=== PATIENT | female | born 1980 | race Native Hawaiian/Other Pacific Islander ===

== ENCOUNTER 2018-03-22 12:42 | Emergency (ER) | payer OTHER ==
[~2018-03-22] VITALS: Ht 152.4 cm; Wt 85.3 kg
[2018-03-22 12:47] VITALS: TEMP 98.4
[2018-03-22 13:35] LABS: PLATELET COUNT 190 K/uL (152-353)
[2018-03-22 14:10] VITALS: BP 126/74
== END 2018-03-22 14:10 | disposition home or self-care (01) ==
LOC: ED 12:42
DX: N39.0 Urinary tract infection, site not specified (principal)
CPT/HCPCS: 36415; 81000; 85027; 96372; 99283; J0696

== ENCOUNTER 2018-12-29 17:43 | Emergency (ER) | payer OTHER ==
[~2018-12-29] VITALS: Ht 152.4 cm; Wt 85.3 kg
[2018-12-29 18:56] LABS: PLATELET COUNT 213 K/uL (152-353)
[2018-12-29 19:10] LABS: POTASSIUM 4.2 mmol/L (3.6-5.2)
[2018-12-29 19:50] VITALS: BP 122/75; TEMP 97.8
== END 2018-12-29 19:50 | disposition home or self-care (01) ==
LOC: ED 17:43
PROVIDERS: Emergency Medicine
DX: M54.5 Low back pain (principal); R10.32 Left lower quadrant pain
CPT/HCPCS: 36415; 80053; 81000; 81025; 85027; 99283

== ENCOUNTER 2019-05-07 16:21 | Emergency (ER) | payer OTHER ==
[~2019-05-07] VITALS: Ht 152.4 cm; Wt 73.6 kg
[2019-05-07 17:52] VITALS: BP 123/81; TEMP 98.1
== END 2019-05-07 18:00 | disposition home or self-care (01) ==
LOC: ED 16:21
DX: N93.8 Other specified abnormal uterine and vaginal bleeding (principal)
CPT/HCPCS: 81000; 81025; 99284

== ENCOUNTER 2021-04-23 13:52 | Emergency (ER) | payer OTHER ==
[~2021-04-23] VITALS: Ht 149.9 cm; Wt 73.5 kg
[2021-04-23 15:15] VITALS: BP 128/80; TEMP 98.2
== END 2021-04-23 15:21 | disposition home or self-care (01) ==
LOC: ED 13:52
DX: S60.221D Contusion of right hand, subsequent encounter (principal); W22.8XXD Striking against or struck by other objects, subsequent encounter; Y92.89 Other specified places as the place of occurrence of the external cause
CPT/HCPCS: 99282